=== PATIENT | male | born 1990 | race Caucasian/White ===

== ENCOUNTER 2023-12-30 12:13 | Emergency (ER) | payer MEDICAID, OTHER ==
[~2023-12-30] VITALS: Ht 172.7 cm; Wt 80.5 kg
[2023-12-30 12:24] VITALS: BP 138/74; PULSE 94; RESP 22; TEMP 98.8; O2SAT 97
[2023-12-30 13:14] LABS: BASOPHILS # (AUTO) 0.2 K/uL (0.00-0.22); BASOPHILS % (AUTO) 2.1 % (0.0-2.0); EOSINOPHILS # (AUTO) 0.2 K/uL (0-0.4); HEMATOCRIT 42.3 % (36-52); HEMOGLOBIN 14.8 g/dL (12.0-18.0); LYMPHOCYTES # (AUTO) 2.5 K/uL (2.0-11.5); MEAN CORPUSCULAR HEMOGLOBIN 33 pg (27-31); MEAN CORPUSCULAR HGB CONC 35 g/dL (33-37); MEAN CORPUSCULAR VOLUME 93.9 fL (80-94); MONOCYTES % (AUTO) 10.8 % (1.7-9.3); NEUTROPHILS # (AUTO) 5.1 K/uL (1.8-7.7); NEUTROPHILS % (AUTO) 57.1 % (42.2-75.2); PLATELET COUNT (AUTO) 79 K/uL (140-450); RED BLOOD CELL COUNT(AUTO) 4.51 MIL/uL (4.20-6.10); RED CELL DISTRIBUTION WIDTH 13.3 % (11.6-13.7); WHITE BLOOD COUNT (AUTO) 8.9 K/uL (4.8-10.8)
[2023-12-30 13:51] LABS: ANION GAP 15.8 (8-16); CALCIUM 8.4 mg/dL (8.5-10.1); CARBON DIOXIDE 25.8 mmol/L (21-32); CREATININE 0.7 mg/dL (0.6-1.3); POTASSIUM 3.6 mmol/L (3.5-5.1)
[2023-12-30] MEDS ORDERED: NYST100022 PO (14:07)
[2023-12-30 14:55] VITALS: BP 129/77; PULSE 78; RESP 16; TEMP 98.1; O2SAT 95
== END 2023-12-30 14:55 | disposition home or self-care (01) ==
LOC: MED 12:13
DX: B37.0 Candidal stomatitis (principal); I10 Essential (primary) hypertension; Z79.899 Other long term (current) drug therapy
CPT/HCPCS: 36415; 71045; 80048; 81025; 85025; 96361; 96374; 99284